=== PATIENT | female | born 1995 | race Caucasian/White ===

== ENCOUNTER 2021-07-22 01:04 | Inpatient (IN) ==
[2021-07-22] MEDS ORDERED: OXYTOCIN 30 UNITS/500 ML BAG IV PRN ×2 (01:46→11:26)
--- NOTE | 2021-07-22 01:49 | History & Physical Report ---
Date of Service July 22, 2021 Assessment & Plan (1) 40 weeks gestation of : Plan: Admit, routine labs, epidural if patient requests, AROM and anticipate (2) Anemia affecting in third trimester: Plan: CBC pending Admission and Anticipated Discharge Date Admission Date: July 22, 2021 History of Present Illness Chief Complaint: Contractions Primary Care Provider: NO PCP Patient is 25-year-old at 40 weeks and 3 days dated by last menstrual period consistent with a 7-week ultrasound who presents to labor and delivery for ongoing contractions that are becoming closer together since 5 PM. Patient states contractions were approximately 5 minutes apart but have gotten closer since arrival. Denies leaking of fluid or vaginal bleeding. Notes good movement. Denies any headache, blurry vision, right upper quadrant epigastric pain. Otherwise feeling well records were reviewed she establish care at 9 weeks and had a total of 11 visits with appropriate amount of care Type O+, antibody screen negative Quad screen negative Initial hemoglobin/hematocrit 11.5/37.1% Gonorrhea and chlamydia negative/negative First trimester HIV negative First trimester hepatitis B surface antigen negative First trimester hepatitis C negative First trimester RPR reactive with a titer of 1-1, repeat RPR screen nonreactive and negative FTA AB/ABS Rubella immune Varicella immune 1 hour 127 GBS negative Third trimester hemoglobin/hematocrit 10.8/34.7% Allergies Allergy/AdvReac Type Severity Reaction Status Date / Time No Known Allergies Allergy Unverified 07/22/21 01:17 Home Medications Medication Instructions Recorded Confirmed Type iron 1 tab PO BID 07/22/21 07/22/21 History shrvdwhv-yon-Rw-FA 1 mg 1 tab PO DAILY 07/22/21 07/22/21 History tablet Patient History Medical History Anemia Surgical History [place] teeth removed Social History Smoking Status: Never smoker Hx Alcohol Use: No Hx Substance Use: No Preferred Language: Telugu Handle Bender Required: No Beliefs That Will Affect Care: None marital status: Current Living Situation: Spouse Feels Safe at Home: Yes Safety Concerns: Feels Safe At This Time OB History Primigravid Review of Systems All systems reviewed & are unremarkable except as noted in HPI & below Physical Exam Constitutional: WD/WN, vitals as above Respiratory: normal respiratory effort, lungs clear to auscultation Cardiovascular: RRR, no murmur, no edema Gastrointestinal (Abdomen): normal bowel sounds, soft, nontender, no hepatosplenomegaly Jewel: 8 lbs 5 oz cephalic Genitourinary: Cx: /-2 check by RN Results & Data ([facility]) Vital Signs (Past 12 Hours) Vital Signs Temp Resp 07/22/21 01:24 36.4 C L 18 Monitoring External Monitor FHT: baseline 145, mod variability, + accels, no decels, Cat 1 tracing Tocodynamometer [place]: q1-2 min
[2021-07-22] MEDS ORDERED: SODIUM CHLORIDE 0.9% INJ 10 ML VIAL ONE (01:52)
[2021-07-22] MEDS ORDERED: ePHEDrine sulfate 50 MG/ML AMP ONE (01:52)
[2021-07-22] MEDS ORDERED: fentaNYL citrate 100 MCG/2 ML VIAL ONE (01:52)
[2021-07-22] MEDS ORDERED: BUPIVACAINE 0.25% 30 ML VIAL ONE (01:52)
[2021-07-22] MEDS ORDERED: fentaNYL 2MCG/ML ROPIVACAINE 1.25MG/ML 100 ML BAG EPI ONE (01:53)
[2021-07-22] MEDS: LACTATED RINGER'S 1,000 ML IV PRN ×3 (02:00→10:26)
[2021-07-22] MEDS ORDERED: BUTORPHANOL TARTRATE 1 MG/ML VIAL IV PRN (02:11)
[2021-07-22] MEDS ORDERED: BUTORPHANOL TARTRATE 1 MG/ML VIAL ONE (02:12)
[2021-07-22 02:16] LABS: Hematocrit (blood only) 37.6 % (37-47); Hemoglobin 12.2 g/dL (12.0-16.0); Mean Corpuscular Hgb Conc 32.4 g/dL (32-36); Mean Corpuscular Volume 92.4 fL (80-100); Mean Platelet Volume 10.3 fL (7.4-10.4); Platelet Count 161 K/uL (130-400); RDW Coefficient of Variation 16.8 % (11.5-14.5); RDW Standard Deviation 56.4 fL (36.4-46.3); Red Blood Count 4.07 M/uL (4.2-5.4); White Blood Count 11.82 K/uL (4.8-10.8)
[2021-07-22] MEDS ORDERED: NALBUPHINE HCL INJ 10 MG/ML AMP IV PRN (02:36)
[2021-07-22] MEDS ORDERED: ONDANSETRON INJ 2 MG/ML 2 ML VIAL IV PRN (02:36)
[2021-07-22] MEDS ORDERED: ePHEDrine sulfate 50 MG/ML AMP IV PRN (02:36)
[2021-07-22] MEDS ORDERED: NALOXONE HCL 0.4 MG/1 ML VIAL/CARP IV PRN (02:36)
[2021-07-22] MEDS ORDERED: diphenhydrAMINE 50 MG/ML VIAL IV PRN (02:36)
[2021-07-22] MEDS ORDERED: fentaNYL 2MCG/ML ROPIVACAINE 1.25MG/ML 100 ML BAG EPI PRN (02:36)
[2021-07-22] MEDS ORDERED: NALOXONE HCL 1 MG in SODIUM CHLORIDE 0.9% 1000ML 1,000 ML IV PRN (02:36)
--- NOTE | 2021-07-22 02:36 | Anesthesiology Consultation ---
Date of Service July 22, 2021 Assessment & Plan ASA ASA2 Proposed Anesthesia Anesthesia Type: Labor Epidural Risk / Benefits Reviewed With: PT / POA / Parent / Guardian, Accepts Plan and Informed Consent Obtained History Height/Weight Height: 5 ft 6 in Weight: 76.204 kg Allergies Allergy/AdvReac Type Severity Reaction Status Date / Time No Known Allergies Allergy Unverified 07/22/21 01:17 Medications Home Medications Medication Instructions Recorded Confirmed Last Taken iron 1 tab PO BID 07/22/21 07/22/21 07/21/21 15:00 mhhokewn-akj-Hn-FA 1 mg 1 tab PO DAILY 07/22/21 07/22/21 07/21/21 08:00 tablet Active Medications Generic Name Dose Route Start Last Admin Trade Name Freq PRN Reason Stop Dose Admin Lactated Ringer's 1,000 mls @ 125 mls/hr 07/22/21 01:46 07/22/21 02:53 Lr IV 07/24/21 01:45 999 mls/hr .Q8H PRN Administration L&D Protocol Protocol Past Medical History Medical History Anemia Exercise / Class Metabolic Activity II 4-5 Yardwork/Stairs/Walk up hill Past Surgical History Surgical History [place] teeth removed Past Anesthesia History No Hx of Anesthesia Complications and No Family Hx of Anesthesia Complications History of PONV No Hx of PONV and No Hx of Motion Sickness Social History Smoking Status: Never smoker Hx Alcohol Use: No Hx Substance Use: No substance use type: does not use Review of Systems denies fever/cough/ colds/ chest pain/ SOB/ JESSICA denies JESSICA Physical Exam Vital Signs Last Vital Signs Temp 36.4 C L 07/22/21 01:24 Pulse 85 07/22/21 03:02 Resp 18 07/22/21 01:24 BP 118/71 07/22/21 03:00 Pulse Ox 94 07/22/21 03:02 ENMT Mouth: no TMJ abnormality and no dentition abnormality Thyromental Distance: > or= 3.5 Finger Breadths Mallampati Class: II Neck neck extension not limited Respiratory normal respiratory effort; no respiratory distress Auscultation: lungs clear to auscultation bilaterally Cardiovascular Rate/Rhythm: regular rate and regular rhythm Neurologic moves all extremities Psychiatric Orientation: alert and oriented x 3 Testing Laboratory Results 07/22/21 02:03
--- NOTE | 2021-07-22 05:59 | Labor Progress Brief Note ---
Date of Service July 22, 2021 Subjective Patient comfortable on epidural, no complaints at this time Assessment & Plan (1) 40 weeks gestation of : Plan: anticipate (2) Anemia affecting in third trimester: Plan: H/H 12.2/37.6% normal on admission Admission and Anticipated Discharge Date Admission Date: July 22, 2021 Physical Exam Constitutional: WD/WN, vitals as above Respiratory: normal respiratory effort, lungs clear to auscultation Cardiovascular: RRR, no murmur, no edema Gastrointestinal (Abdomen): normal bowel sounds, soft, nontender, no hepatosplenomegaly Genitourinary: heart tracing: Baseline 1 4145, moderate variability, positive accelerations, no decelerations, category 1 tracing Tocometer: Contractions q. 2 to 5 minutes Cervix: 9/100/+1, AROM with moderate amount of clear fluid, no cord felt, no complications Results & Data ([facility]) Vital Signs (Past 12 Hours) Vital Signs Temp Pulse Resp BP Pulse Ox 07/22/21 05:54 91 H 96 07/22/21 05:49 112 H 97 07/22/21 05:47 123 H 108/63 07/22/21 05:44 85 94 07/22/21 05:39 72 94 07/22/21 05:34 80 96 07/22/21 05:33 90 115/69 07/22/21 05:29 97 H 94 07/22/21 05:24 71 95 07/22/21 05:19 100 H 97 07/22/21 05:18 66 120/70 07/22/21 05:14 79 96 07/22/21 05:09 104 H 96 07/22/21 05:04 72 120/74 96 07/22/21 04:59 73 96 07/22/21 04:54 105 H 95 07/22/21 04:49 126 H 96 07/22/21 04:48 75 140/77 07/22/21 04:45 36.8 C 16 07/22/21 04:44 84 96 07/22/21 04:39 80 96 07/22/21 04:34 70 96 07/22/21 04:32 84 102/60 07/22/21 04:29 67 94 07/22/21 04:24 69 94 07/22/21 04:19 65 94 07/22/21 04:18 84 103/61 07/22/21 04:14 99 H 96 07/22/21 04:09 85 95 07/22/21 04:04 65 93 07/22/21 04:03 122 H 97/54 L 07/22/21 04:00 18 07/22/21 03:59 64 96 07/22/21 03:54 61 95 07/22/21 03:49 63 94 07/22/21 03:48 126 H 110/65 07/22/21 03:44 59 L 95 07/22/21 03:39 73 97 07/22/21 03:34 104 H 96 07/22/21 03:33 82 110/56 L 07/22/21 03:29 69 95 07/22/21 03:24 69 94 07/22/21 03:19 67 95 07/22/21 03:18 110 H 112/68 07/22/21 03:14 68 96 07/22/21 03:09 67 93 07/22/21 03:05 36.8 C 18 07/22/21 03:04 67 94 07/22/21 03:02 85 94 07/22/21 03:00 71 118/71 07/22/ 02:59 71 97 07/22/21 02:58 68 115/60 07/22/21 02:55 80 94 07/22/21 02:54 83 114/66 94 07/22/21 02:49 82 97 07/22/21 02:44 74 97 07/22/21 02:43 86 92 07/22/21 02:39 68 96 07/22/21 02:35 71 94 07/22/21 02:34 69 95 07/22/21 02:29 85 95 07/22/21 02:27 90 93 20/ 02:24 69 96 07/22/21 02:19 72 97 07/22/21 02:16 82 119/72 20 02:14 90 98 07/22/21 01:24 36.4 C L 18
[2021-07-22 10:29] LABS: Hepatitis B Surf Ag Rflx Conf Neg (Neg)
[2021-07-22 10:57] LABS: Hepatitis C IgG 13Yrs+Old_Rflx Neg (Neg)
--- NOTE | 2021-07-22 11:25 | Delivery Summary ---
Vaginal Delivery Summary Date of Service July 22, 2021 Vaginal Delivery Summary Delivery note live male HADLEY over intact perineum with Apgars 7/9 weight pending. Cord blood obtained followed by spontaneous delivery of intact placenta. No tears. EBL 100 ml. Final sponge and instrument count are correct. Mom and baby stable.
[2021-07-22] MEDS ORDERED: bisacodyL 10 MG SUPP PR PRN (11:26)
[2021-07-22] MEDS ORDERED: SUPERCREAM 0.870% 15 GM JAR EXT PRN (11:26)
[2021-07-22] MEDS ORDERED: HYDROCORTISONE ACETATE 25 MG SUPP PR PRN (11:26)
[2021-07-22] MEDS ORDERED: ACETAMINOPHEN 325 MG TAB PO PRN (11:26)
[2021-07-22] MEDS ORDERED: DIPHTHERIA/TETANUS/PERTUSSIS 0.5 ML SYR/VIAL IM ONE (11:26)
[2021-07-22] MEDS ORDERED: BENZOCAINE 20% AER SPR 82.5 GM CAN EXT PRN (11:26)
--- NOTE | 2021-07-22 12:22 | Anesthesiology Progress Note ---
Date of Service July 22, 2021 Anesthesia Post Procedure Vital Signs Vital Signs: Temp Pulse Resp BP Pulse Ox 07/22/21 12:08 99 H 126/77 07/22/21 11:55 18 07/22/21 11:40 18 07/22/21 11:38 88 119/74 07/22/21 11:25 37.3 C 18 07/22/21 11:09 95 H 98 07/22/21 11:08 122 H 122/76 07/22/21 11:04 103 H 98 07/22/21 11:00 18 07/22/21 10:59 98 H 97 07/22/21 10:54 103 H 98 07/22/21 10:49 102 H 97 07/22/21 10:44 95 H 98 07/22/21 10:39 102 H 98 07/22/21 10:34 117 H 97 07/22/21 10:30 18 07/22/21 10:29 111 H 94 07/22/21 10:24 87 97 07/22/21 10:23 112 H 89 L 07/22/21 10:19 109 H 97 07/22/21 10:14 94 H 98 07/22/21 10:09 117 H 117/58 L 97 07/22/21 10:04 121 H 98 07/22/21 10:00 18 07/22/21 09:59 164 H 98 07/22/21 09:54 159 H 97 07/22/21 09:50 95 H 88 L 07/22/21 09:49 153 H 98 07/22/21 09:44 114 H 74 L 07/22/21 09:39 78 116/79 99 07/22/21 09:34 117 H 98 07/22/21 09:30 18 07/22/21 09:29 76 97 07/22/21 09:24 126 H 99 07/22/21 09:19 132 H 99 07/22/21 09:14 96 H 100 07/22/21 09:09 75 114/63 99 07/22/21 09:04 87 98 07/22/21 09:00 37.0 C 18 07/22/21 08:59 86 97 07/22/21 08:54 92 H 96 07/22/21 08:49 78 96 07/22/21 08:44 83 96 07/22/21 08:39 92 H 97 07/22/21 08:38 74 113/65 07/22/21 08:34 81 96 07/22/21 08:29 73 97 07/22/21 08:24 85 96 07/22/21 08:19 73 97 07/22/21 08:14 79 96 07/22/21 08:09 103 H 97 07/22/21 08:08 115 H 116/67 07/22/21 08:04 86 97 07/22/21 08:00 18 07/22/21 07:59 130 H 97 07/22/21 07:54 129 H 97 07/22/21 07:49 128 H 97 07/22/21 07:44 74 96 07/22/21 07:39 107 H 96 07/22/21 07:38 134 H 92/54 L 07/22/21 07:34 120 H 97 07/22/21 07:30 18 07/22/21 07:29 129 H 97 07/22/21 07:24 105 H 97 07/22/21 07:19 133 H 97 07/22/21 07:15 37.0 C 18 07/22/21 07:14 140 H 95 07/22/21 07:10 37.0 C 18 07/22/21 07:09 126 H 128/74 94 07/22/21 07:04 146 H 97 07/22/21 06:59 120 H 97 07/22/21 06:54 72 96 07/22/21 06:49 107 H 96 07/22/21 06:44 76 96 07/22/21 06:39 76 96 07/22/21 06:38 118 H 114/82 07/22/21 06:34 112 H 97 07/22/21 06:29 75 96 07/22/21 06:24 109 H 95 07/22/21 06:19 93 H 96 07/22/21 06:14 82 96 07/22/21 06:10 37.1 C 16 07/22/21 06:09 103 H 96 07/22/21 06:07 88 120/79 07/22/21 06:04 117 H 94/48 L 96 07/22/21 05:59 109 H 97 07/22/21 05:54 91 H 96 07/22/21 05:49 112 H 97 07/22/21 05:47 123 H 108/63 07/22/21 05:44 85 94 07/22/21 05:39 72 94 07/22/21 05:34 80 96 07/22/21 05:33 90 115/69 07/22/21 05:29 97 H 94 07/22/21 05:24 71 95 07/22/21 05:19 100 H 97 07/22/21 05:18 66 120/70 07/22/21 05:14 79 96 07/22/21 05:09 104 H 96 07/22/21 05:04 72 120/74 96 07/22/21 04:59 73 96 07/22/21 04:54 105 H 95 07/22/21 04:49 126 H 96 07/22/21 04:48 75 140/77 07/22/21 04:45 36.8 C 16 07/22/21 04:44 84 96 07/22/21 04:39 80 96 07/22/21 04:34 70 96 07/22/21 04:32 84 102/60 07/22/21 04:29 67 94 07/22/21 04:24 69 94 07/22/21 04:19 65 94 07/22/21 04:18 84 103/61 07/22/21 04:14 99 H 96 07/22/21 04:09 85 95 07/22/21 04:04 65 93 07/22/21 04:03 122 H 97/54 L 07/22/21 04:00 18 07/22/21 03:59 64 96 07/22/21 03:54 61 95 07/22/21 03:49 63 94 07/22/21 03:48 126 H 110/65 07/22/21 03:44 59 L 95 07/22/21 03:39 73 97 07/22/21 03:34 104 H 96 07/22/21 03:33 82 110/56 L 07/22/21 03:29 69 95 07/22/21 03:24 69 94 07/22/21 03:19 67 95 07/22/21 03:18 110 H 112/68 07/22/21 03:14 68 96 07/22/21 03:09 67 93 07/22/21 03:05 36.8 C 18 07/22/21 03:04 67 94 07/22/21 03:02 85 94 07/22/21 03:00 71 118/71 07/22/21 02:59 71 97 07/22/21 02:58 68 115/60 07/22/21 02:55 80 94 07/22/21 02:54 83 114/66 94 07/22/21 02:49 82 97 07/22/21 02:44 74 97 07/22/21 02:43 86 92 07/22/21 02:39 68 96 07/22/21 02:35 71 94 07/22/21 02:34 69 95 07/22/21 02:29 85 95 07/22/21 02:27 90 93 07/22/21 02:24 69 96 07/22/21 02:19 72 97 07/22/21 02:16 82 119/72 07/22/21 02:14 90 98 07/22/21 01:24 36.4 C L 18 Pain Intensity Lower Abdomen: Pain Intensity: 8 Transfer of Care Handoff Completed per policy Notes Mental Status: alert / awake / arousable Nausea / Vomiting: adequately controlled Pain: adequately controlled Airway Patency, RR, SpO2: stable & adequate BP & HR: stable & adequate Hydration State: stable & adequate Neuraxial Anesthesia: was administered and sensory block is resolving Anesthetic Complications: no major complications apparent
--- NOTE | 2021-07-22 12:23 | Anesthesia Procedure Note ---
Date of Service July 22, 2021 Anesthesia Post Epidural Note Vital Signs Vital Signs: Temp Pulse Resp BP Pulse Ox 37.3 C 99 H 18 126/77 98 07/22/21 11:25 07/22/21 12:08 07/22/21 11:55 07/22/21 12:08 07/22/21 11:09 Pain Intensity Lower Abdomen: Pain Intensity: 8 Notes Mental Status: alert / awake / arousable Nausea / Vomiting: adequately controlled Pain: adequately controlled Airway Patency, RR, SpO2: stable & adequate BP & HR: stable & adequate Hydration State: stable & adequate Neuraxial Anesthesia: was administered and sensory block is resolving Anesthetic Complications: no major complications apparent Epidural: Removed without complications and With tip intact
[2021-07-22] MEDS: IBUPROFEN 600 MG TAB PO PRN ×2 (13:37→23:38)
[2021-07-22] MEDS: DOCUSATE SODIUM 100 MG CAP PO SCH (20:56)
[2021-07-22] MEDS ORDERED: NON-FORMULARY MEDICATION (Iron 1 TAB) PO SCH (21:00)
[2021-07-23 06:08] LABS: Hematocrit (blood only) 37.7 % (37-47); Mean Corpuscular Hemoglobin 29.7 pg (25-34); Mean Corpuscular Hgb Conc 31.8 g/dL (32-36); Mean Corpuscular Volume 93.3 fL (80-100); Mean Platelet Volume 10.6 fL (7.4-10.4); Platelet Count 153 K/uL (130-400); RDW Coefficient of Variation 17.4 % (11.5-14.5); RDW Standard Deviation 59.1 fL (36.4-46.3); Red Blood Count 4.04 M/uL (4.2-5.4); White Blood Count 16.71 K/uL (4.8-10.8)
[2021-07-23] MEDS: IBUPROFEN 600 MG TAB PO PRN ×2 (07:58→15:50)
[2021-07-23] MEDS: DOCUSATE SODIUM 100 MG CAP PO SCH ×2 (07:58→20:11)
[2021-07-23] MEDS: PRENATAL VITAMIN 1 TAB PO SCH (07:59)
[2021-07-23] MEDS: FERROUS SULFATE 325 MG TAB PO SCH (07:59)
[2021-07-23] MEDS ORDERED: NON-FORMULARY MEDICATION (Prenatal Multivit-Min-Fe-Fa 1 mg Tablet) PO SCH (09:00)
--- NOTE | 2021-07-23 10:41 | Obstetrical Progress Note ---
Date of Service July 23, 2021 Assessment & Plan Admission and Anticipated Discharge Date Admission Date: July 22, 2021 Subjective Patient is seen and examined. She feels well, no complaints. Ambulating without dizziness Voiding without difficulty Tolerating regular diet with out N&V Bleeding is minimal No fever/ chills/ CP/ SOB/ N&V/ Leg pain Breast feeding without problems Lab Results 07/22/21 07/22/21 07/22/21 Range/Units 01:45 02:03 02:03 WBC 11.82 H (4.8-10.8) K/uL RBC 4.07 L (4.2-5.4) M/uL Hgb 12.2 (12.0-16.0) g/dL Hct 37.6 (37-47) % MCV 92.4 (80-100) fL MCH 30.0 (25-34) pg MCHC 32.4 (32-36) g/dL RDW Std Deviation 56.4 H (36.4-46.3) fL RDW Coeff of Royer 16.8 H (11.5-14.5) % Plt Count 161 (130-400) K/uL MPV 10.3 (7.4-10.4) fL RPR (Nonreactive) Hep Bs Antigen (Neg) Hepatitis C Antibody (Neg) HIV 1&2 Ab/P24 Ag 4thGn (Neg) SARS-CoV-2, RNA, NAAT NEGATIVE (NEGATIVE) Blood Type O Positive Antibody Screen NEGATIVE 07/22/21 07/22/21 07/22/21 Range/Units 02:03 02:03 02:03 WBC (4.8-10.8) K/uL RBC (4.2-5.4) M/uL Hgb (12.0-16.0) g/dL Hct (37-47) % MCV (80-100) fL MCH (25-34) pg MCHC (32-36) g/dL RDW Std Deviation (36.4-46.3) fL RDW Coeff of Royer (11.5-14.5) % Plt Count (130-400) K/uL MPV (7.4-10.4) fL RPR Nonreactive (Nonreactive) Hep Bs Antigen Neg (Neg) Hepatitis C Antibody Neg (Neg) HIV 1&2 Ab/P24 Ag 4thGn Neg (Neg) SARS-CoV-2, RNA, NAAT (NEGATIVE) Blood Type Antibody Screen 07/23/21 Range/Units 05:40 WBC 16.71 H (4.8-10.8) K/uL RBC 4.04 L (4.2-5.4) M/uL Hgb 12.0 (12.0-16.0) g/dL Hct 37.7 (37-47) % MCV 93.3 (80-100) fL MCH 29.7 (25-34) pg MCHC 31.8 L (32-36) g/dL RDW Std Deviation 59.1 H (36.4-46.3) fL RDW Coeff of Royer 17.4 H (11.5-14.5) % Plt Count 153 (130-400) K/uL MPV 10.6 H (7.4-10.4) fL RPR (Nonreactive) Hep Bs Antigen (Neg) Hepatitis C Antibody (Neg) HIV 1&2 Ab/P24 Ag 4thGn (Neg) SARS-CoV-2, RNA, NAAT (NEGATIVE) Blood Type Antibody Screen Vital Signs Temp Pulse Pulse Resp BP Pulse Ox 07/23/21 07:05 36.6 C 79 12 111/72 97 07/23/21 03:20 36.4 C L 75 18 114/70 07/23/21 00:00 36.8 C 86 18 128/76 PE: General: Alert, orientedx3, NAD Abd: soft, NT, fundus firm, below Umbilicus Perineum intact, Lochia rubra minimal Ext; NT, no edema AP: 25 yo s/p , ppd# 1 VSS Afebrile doing well CBC in am Continue routine care All questions were answered D/C home tomorrow Results & Data ([facility]) Vital Signs (Past 12 Hours) Vital Signs Temp Pulse Pulse Resp BP Pulse Ox 07/23/21 07:05 36.6 C 79 12 111/72 97 07/23/21 03:20 36.4 C L 75 18 114/70 07/23/21 00:00 36.8 C 86 18 128/76
[2021-07-23] MEDS ORDERED: bisacodyL 5 MG TABEC PO SCH (20:00)
[2021-07-24] MEDS: IBUPROFEN 600 MG TAB PO PRN ×2 (06:47→12:10)
[2021-07-24 08:30] LABS: Basophils # (auto) 0.04 K/uL (0-0.2); Basophils % (auto) 0.3 %; Eosinophils # (auto) 0.15 K/uL (0-0.5); Eosinophils % (auto) 1.2 %; Hematocrit (blood only) 38.9 % (37-47); Hemoglobin 12.2 g/dL (12.0-16.0); Immature Granulocytes # (auto) 0.09 K/uL (0.00-0.02); Immature Granulocytes % (auto) 0.7 %; Lymphocytes # (auto) 2.35 K/uL (1.2-3.4); Mean Corpuscular Hemoglobin 29.3 pg (25-34); Mean Corpuscular Hgb Conc 31.4 g/dL (32-36); Mean Corpuscular Volume 93.3 fL (80-100); Mean Platelet Volume 10.8 fL (7.4-10.4); Monocytes # (auto) 1.21 K/uL (0.11-0.59); Monocytes % (auto) 9.8 %; Neutrophils # (auto) 8.54 K/uL (1.4-6.5); Platelet Count 168 K/uL (130-400); RDW Coefficient of Variation 17.4 % (11.5-14.5); RDW Standard Deviation 58.2 fL (36.4-46.3); Red Blood Count 4.17 M/uL (4.2-5.4); White Blood Count 12.38 K/uL (4.8-10.8)
[2021-07-24] MEDS: PRENATAL VITAMIN 1 TAB PO SCH (08:48)
[2021-07-24] MEDS: DOCUSATE SODIUM 100 MG CAP PO SCH (08:48)
[2021-07-24] MEDS: FERROUS SULFATE 325 MG TAB PO SCH (08:49)
--- NOTE | 2021-07-24 09:41 | Obstetrical Progress Note ---
Date of Service July 24, 2021 Subjective Ambulation: ambulating normally Voiding: no voiding problems Passing Gas:: Yes Diet Tolerance:: regular diet Lochia:: Small Feeding Type:: breast feeding Review of Systems All systems reviewed & are unremarkable except as noted in HPI & below Physical Exam Constitutional WD/WN, vitals as above well developed and well nourished Eyes PERRL, conjunctivae normal, anicteric sclerae Neck trachea midline, no thyromegaly Respiratory normal respiratory effort, lungs clear to auscultation Auscultation: no crackles, no rales and no wheezes Cardiovascular RRR, no murmur, no edema Gastrointestinal (Abdomen) normal bowel sounds, soft, nontender, no hepatosplenomegaly Uterus is below umbilicus Musculoskeletal no cyanosis or clubbing, extremities motor strength 5/5 Skin no rashes, warm and dry Neurologic patellar DTR's 2+ bilat, sensation intact Psychiatric A+Ox3, euthymic affect Genitourinary normal external appearance Results & Data ([facility]) Vital Signs (Past 12 Hours) Vital Signs Temp Pulse Resp BP Pulse Ox 07/24/21 08:30 36.5 C 88 16 118/78 97 07/24/21 00:15 36.8 C 88 18 118/76 Medications Administered PPD #2 pt doing well wishes to be discharged home
== END 2021-07-24 13:05 | disposition home or self-care (01) | DRG 807 ==
LOC: 4S1 01:04 → 4S2 14:12

== ENCOUNTER 2024-12-22 05:16 | Inpatient (IN) ==
[2024-12-22] MEDS ORDERED: CALCIUM CARBONATE 500 MG CHEWABLE TAB PO PRN (05:36)
[2024-12-22] MEDS ORDERED: ACETAMINOPHEN 500 MG TAB PO PRN (05:36)
[2024-12-22] MEDS ORDERED: LIDOCAINE 1% LOCAL 20 ML VIAL INFIL PRN (05:36)
[2024-12-22] MEDS: LACTATED RINGER'S 1,000 ML IV PRN (05:50)
--- NOTE | 2024-12-22 06:00 | History & Physical Report ---
Date of Service December 22, 2024 Assessment & Plan (1) Post-term , 40-42 weeks of gestation: Plan: 29-year-old -0-0-1 at 40 weeks and 4 days of gestation presenting today with regular contractions and active labor, Vital signs stable afebrile, heart rate reassuring, GBS negative, Plan to admit, monitor, labs, IV fluids, epidural for pain, anticipate , All questions were answered. (2) Active labor at term: Admission and Anticipated Discharge Date Admission Date: December 22, 2024 History of Present Illness Chief Complaint: Contractions Primary Care Provider: NO PCP patient is a 29-year-old -0-0-1 at 41 weeks and 4 days gestation who was scheduled for induction of labor for postdates today. She started with contractions around 3 AM they got more painful and regular for the last hour or so. She came to labor and delivery in active labor and crying and asking for epidural for pain. She denies leakage of fluid or vaginal bleeding. She reports good movements. Her has been uncomplicated, GBS negative. Allergies Allergy/AdvReac Type Severity Reaction Status Date / Time No Known Allergies Allergy Unverified 07/22/21 01:17 Home Medications Medication Instructions Recorded Confirmed Type iron 1 tab PO BID 07/22/21 12/22/24 History muixkejf-kbw-Kx-FA 1 mg 1 tab PO DAILY 07/22/21 12/22/24 History tablet ibuprofen 600 mg tablet 600 mg PO Q4H #30 tabs 07/24/21 Rx Patient History Medical History Anemia Surgical History [place] teeth removed Social History Smoking Status: Never smoker Hx Alcohol Use: No Hx Substance Use: No Preferred Language: Lebanese Platform Material Handling Supervisor Required: No Beliefs That Will Affect Care: None marital status: Current Living Situation: Spouse Feels Safe at Home: Yes Assistive Devices: None OB History Full-term in 2020 [employer] History no history of STDs, no history of chlamydia, gonorrhea, herpes Review of Systems as per Subjective / HPI Physical Exam Constitutional: WD/WN, vitals as above well developed, well nourished and + acute distress ( with contractions) Genitourinary: normal external appearance OB Exam Abdomen: + vertex Manual OB Exam: + cervical dilation 7 cm, + cervical effacement 90% and + station -1 OB Exam Monitor Tracing: + external uterine monitor used ( contractions every 1 to 2 minutes) and + category I Results & Data Vital Signs (Past 12 Hours) Vital Signs Temp Pulse BP 12/22/24 05:51 36.5 C 12/22/24 05:47 87 141/75 H
[2024-12-22 06:06] LABS: Hematocrit (blood only) 38.6 % (37.0-47.0); Hemoglobin 13.6 g/dl (12.0-16.0); Mean Corpuscular Hemoglobin 31.1 pg (25.0-34.0); Mean Corpuscular Hgb Conc 35.2 g/dL (32.0-36.0); Mean Corpuscular Volume 88.3 fL (80.0-100.0); Platelet Count 176 K/uL (130-400); RDW Coefficient of Variation 13.2 % (11.5-14.5); RDW Standard Deviation 42.6 fL (36.4-46.3); Red Blood Count 4.37 M/uL (4.20-5.40); White Blood Count 14.55 K/ul (4.8-10.8)
[2024-12-22] MEDS ORDERED: LIDOCAINE 2% MPF LOCAL 5 ML VIAL EPI PRN (06:26)
[2024-12-22] MEDS ORDERED: NALOXONE HCL 1 MG in SODIUM CHLORIDE 0.9% 1,000 ML IV PRN (06:26)
[2024-12-22] MEDS ORDERED: ePHEDrine sulfate 50 MG/ML AMP IV PRN (06:26)
[2024-12-22] MEDS ORDERED: ONDANSETRON INJ 2 MG/ML 2 ML VIAL IV PRN (06:26)
[2024-12-22] MEDS ORDERED: NALBUPHINE HCL INJ 10 MG/ML AMP IV PRN (06:26)
[2024-12-22] MEDS ORDERED: fentANYL 2 MCG/ML BUPIVacaine 0.125%-NSS 100ML BAG EPI PRN (06:26)
[2024-12-22] MEDS ORDERED: diphenhydrAMINE 50 MG/ML VIAL IV PRN (06:26)
[2024-12-22] MEDS ORDERED: NALOXONE HCL 0.4 MG/1 ML VIAL/CARP IV PRN (06:26)
[2024-12-22] MEDS ORDERED: BUPIVACAINE 0.25% PF 30 ML VIAL EPI PRN (06:26)
[2024-12-22] MEDS ORDERED: SODIUM CHLORIDE 0.9% PF INJ 10 ML VIAL EPI PRN (06:26)
[2024-12-22] MEDS ORDERED: ROPIVACAINE 0.5% PF 5 MG/ML 20 ML VIAL EPI PRN (06:26)
[2024-12-22] MEDS ORDERED: fentaNYL citrate PF 100 MCG/2 ML VIAL EPI PRN (06:26)
--- NOTE | 2024-12-22 06:27 | Anesthesiology Consultation ---
Date of Service December 22, 2024 Assessment & Plan ASA ASA2 Proposed Anesthesia Anesthesia Type: Labor Epidural Risk / Benefits Reviewed With: PT / POA / Parent / Guardian, Accepts Plan and Informed Consent Obtained History Height/Weight Height: 5 ft 7 in Weight: 77.564 kg Allergies Allergy/AdvReac Type Severity Reaction Status Date / Time No Known Allergies Allergy Unverified 07/22/21 01:17 Medications Home Medications Medication Instructions Recorded Confirmed Last Taken iron 1 tab PO BID 07/22/21 12/22/24 07/21/21 15:00 idbistco-phl-Xy-FA 1 mg 1 tab PO DAILY 07/22/21 12/22/24 12/21/24 20:00 tablet ibuprofen 600 mg tablet 600 mg PO Q4H #30 tabs 07/24/21 Unknown Active Medications Generic Name Dose Route Start Last Admin Trade Name Freq PRN Reason Stop Dose Admin Lactated Ringer's 1,000 mls @ 150 mls/hr 12/22/24 05:36 12/22/24 06:46 Lr IV 12/24/24 05:35 125 mls/hr .[id number] PRN Administration L&D Protocol Protocol Past Medical History Medical History Anemia Exercise / Class Metabolic Activity II 4-5 Yardwork/Stairs/Walk up hill Past Surgical History Surgical History [place] teeth removed Past Anesthesia History No Hx of Anesthesia Complications and No Family Hx of Anesthesia Complications History of PONV No Hx of PONV and No Hx of Motion Sickness Social History Smoking Status: Never smoker Hx Alcohol Use: No Hx Substance Use: No substance use type: does not use Review of Systems denies fever/cough/ colds/ chest pain/ SOB/ JESSICA denies JESSICA Physical Exam Vital Signs Last Vital Signs Temp 36.5 C 12/22/24 05:51 Pulse 79 12/22/24 06:50 BP 118/70 12/22/24 06:49 Pulse Ox 100 12/22/24 06:50 ENMT Mouth: no TMJ abnormality and no dentition abnormality Thyromental Distance: > or= 3.5 Finger Breadths Mallampati Class: II Neck neck extension not limited Respiratory normal respiratory effort; no respiratory distress Auscultation: lungs clear to auscultation bilaterally Cardiovascular Rate/Rhythm: regular rate and regular rhythm Neurologic moves all extremities Psychiatric Orientation: alert and oriented x 3 Testing Laboratory Results 12/22/24 05:49
[2024-12-22] MEDS: fentANYL 2 MCG/ML BUPIVacaine 0.125%-NSS 100ML BAG ONE (06:47)
[2024-12-22] MEDS: LIDOCAINE 2%/EPINEPHRINE 1:200,000 20 ML PF ONE (06:49)
[2024-12-22] MEDS: fentaNYL citrate PF 100 MCG/2 ML VIAL ONE (06:49)
[2024-12-22] MEDS: BUPIVACAINE 0.25% PF 30 ML VIAL ONE (06:49)
[2024-12-22] MEDS: BUPIVACAINE 0.25% PF 30 ML VIAL EPI STA (06:52)
[2024-12-22] MEDS: SODIUM CHLORIDE 0.9% PF INJ 10 ML VIAL EPI STA (06:52)
[2024-12-22] MEDS: LIDOCAINE 2%/EPINEPHRINE 1:200,000 20 ML PF EPI STA (06:52)
[2024-12-22] MEDS: fentaNYL citrate PF 100 MCG/2 ML VIAL EPI STA (06:52)
[2024-12-22] MEDS: OXYTOCIN 30 UNITS/NSS 30 UNITS/500 ML BAG IV PRN (09:08)
[2024-12-22] MEDS: METHYLERGONOVINE MALEATE 0.2 MG/ML AMP IM ONE (09:11)
[2024-12-22] MEDS ORDERED: METHYLERGONOVINE MALEATE 0.2 MG/ML AMP IM STA (09:12)
[2024-12-22] MEDS ORDERED: ACETAMINOPHEN 325 MG TAB PO PRN (09:18)
[2024-12-22] MEDS ORDERED: OXYTOCIN 30 UNITS/NSS 30 UNITS/500 ML BAG IV PRN (09:18)
[2024-12-22] MEDS ORDERED: ACETAMINOPHEN W/CODEINE #3 1 TAB PO PRN (09:18)
[2024-12-22] MEDS ORDERED: oxyCODONE/ACETAMINOPHEN 5mg/325mg TAB PO PRN (09:18)
[2024-12-22] MEDS ORDERED: bisacodyL 10 MG SUPP PR PRN (09:18)
[2024-12-22] MEDS ORDERED: HYDROCORTISONE ACETATE 25 MG SUPP PR PRN (09:18)
--- NOTE | 2024-12-22 09:23 | Delivery Summary ---
Vaginal Delivery Summary Date of Service December 22, 2024 Vaginal Delivery Summary Patient is a 2 para 2. Followed in the office for care and delivery. Presents in active labor at 40 weeks and 1 day gestation. On admission she was 6+ centimeters with bulging membranes. Shortly she had an epidural placed which gave her good pain relief. At full dilatation membranes were ruptured surgically fluid was clear. She went on to push out a live female infant via direct occiput anterior position over an intact perineum. was suctioned through the mouth and the nose. Cord was allowed to pulse for 1 full minute. It was then clamped cut by the father. Cord blood was taken. With IV Pitocin and IM Methergine yasir the uterus the placenta was removed intact. Quantitative blood loss was 100 mL. There was a superficial laceration of the perineum at 6:00. This was repaired with running and interrupted 3-0 Vicryl sutures. Following this hemostasis was good uterus was well-contracted patient tolerated procedure well.
--- NOTE | 2024-12-22 10:27 | Anesthesia Procedure Note ---
Date of Service December 22, 2024 Anesthesia Post Epidural Note Vital Signs Vital Signs: Temp Pulse Resp BP Pulse Ox 97.7 F 75 16 122/71 91 12/22/24 09:15 12/22/24 10:24 12/22/24 10:00 12/22/24 10:24 12/22/24 09:04 Pain Intensity Abdomen: Pain Intensity: 6 Notes Mental Status: alert / awake / arousable and participated in evaluation Nausea / Vomiting: adequately controlled Pain: adequately controlled Airway Patency, RR, SpO2: stable & adequate BP & HR: stable & adequate Hydration State: stable & adequate Neuraxial Anesthesia: was administered and sensory block is resolving Anesthetic Complications: no major complications apparent and Pt Satisfied with anesthetic care Epidural: Removed without complications and With tip intact
[2024-12-22] MEDS: BENZOCAINE 20% SPRY 85 APPLN/85 GM CAN EXT PRN (11:11)
[2024-12-22] MEDS: IBUPROFEN 600 MG TAB PO PRN (14:08)
[2024-12-22] MEDS: ePHEDrine sulfate 50 MG/ML AMP ONE (19:27)
[2024-12-22] MEDS: DIPHTHER/TETAN/PERTUS Vaccine (Tdap, Adol/Adult) 0.5mL IM ONE (19:27)
[2024-12-22] MEDS: SODIUM CHLORIDE 0.9% PF INJ 10 ML VIAL ONE (19:27)
[2024-12-22] MEDS: DOCUSATE SODIUM 100 MG CAP PO SCH (20:02)
[2024-12-23] MEDS: METHYLERGONOVINE MALEATE 0.2 MG/ML AMP IM ONE (05:58)
[2024-12-23 06:24] LABS: Hematocrit (blood only) 35.6 % (37.0-47.0); Hemoglobin 12.1 g/dl (12.0-16.0); Mean Corpuscular Hemoglobin 31.4 pg (25.0-34.0); Mean Corpuscular Volume 92.5 fL (80.0-100.0); Mean Platelet Volume 10.3 fL (9.4-12.4); Platelet Count 168 K/uL (130-400); RDW Coefficient of Variation 13.3 % (11.5-14.5); RDW Standard Deviation 44.7 fL (36.4-46.3); Red Blood Count 3.85 M/uL (4.20-5.40); White Blood Count 16.56 K/ul (4.8-10.8)
[2024-12-23] MEDS: PRENATAL VITAMIN 1 TAB PO SCH (08:43)
[2024-12-23 09:36] VITALS: BP 108/70; PULSE 82; RESP 18; TEMP 97.5; O2SAT 97
--- NOTE | 2024-12-23 10:21 | Obstetrical Progress Note ---
Date of Service December 23, 2024 Subjective Ambulation: ambulating normally Voiding: no voiding problems Passing Gas:: Yes Diet Tolerance:: regular diet Feeding Type:: breast feeding Current Pain Level(1-10): 0 doing well. plans for d/c today. Physical Exam Constitutional WD/WN, vitals as above Gastrointestinal (Abdomen) Inspection/Auscultation: abdomen normal to inspection fundus firm below U. abdomen soft and non-tender. Musculoskeletal Extremities: extremities normal to inspection Skin no rashes, warm and dry Neurologic patellar DTR's 2+ bilat, sensation intact Psychiatric A+Ox3, euthymic affect Results & Data Vital Signs (Past 12 Hours) Vital Signs Temp Pulse Resp BP Pulse Ox O2 Del Method 12/23/24 08:00 36.4 C L 82 18 108/70 97 Room Air 12/23/24 02:47 36.6 C 74 16 109/67 98 Room Air 12/22/24 23:00 84 18 105/64 95 Room Air Laboratory Results Laboratory Results - last 72 hr 12/22/24 12/23/24 05:49 05:46 WBC 14.55 H 16.56 H RBC 4.37 3.85 L Hgb 13.6 12.1 Hct 38.6 35.6 L MCV 88.3 92.5 MCH 31.1 31.4 MCHC 35.2 34.0 RDW Std Deviation 42.6 44.7 RDW Coeff of Royer 13.2 13.3 Plt Count 176 168 MPV 10.0 10.3 Treponema pallidum Ab Negative
[2024-12-23] MEDS ORDERED: bisacodyL 5 MG TABEC PO SCH (20:00)
== END 2024-12-23 12:23 | disposition home or self-care (01) | DRG 807 ==
LOC: 4S1 05:16 → 4E2 12:09